=== PATIENT | female | born 1930 | race Caucasian/White ===

== ENCOUNTER 2020-04-01 10:56 | Emergency (ER) | payer OTHER ==
[~2020-04-01] VITALS: Ht 165.1 cm; Wt 66.6 kg
[2020-04-01] MEDS ORDERED: CHILDREN'S ASPI81 M1 PO (11:13)
[2020-04-01] MEDS ORDERED: METFORMIN HCL500 M3 PO (11:13)
[2020-04-01] MEDS ORDERED: LISINOPRIL2.5 MG PO (11:14)
[2020-04-01] MEDS ORDERED: LEVO-T50 MCG PO (11:14)
[2020-04-01] MEDS ORDERED: REGLAN 5 MG TAB5 MG PO (11:15)
[2020-04-01] MEDS ORDERED: EZETIMIBE10 MG PO (11:15)
[2020-04-01] MEDS ORDERED: LIPITOR10 MG PO (11:16)
[2020-04-01] MEDS ORDERED: DONEPEZIL HCL 55 M1 PO (11:16)
[2020-04-01 11:24] LABS: ABSOLUTE BASOPHILS 0.1 thou/uL (0.0-0.2); ABSOLUTE EOSINOPHILS 0.1 thou/uL (0.0-0.7); ABSOLUTE LYMPHOCYTES 1.3 thou/uL (0.8-5.3); ABSOLUTE MONOCYTES 0.5 thou/uL (0.0-1.2); ABSOLUTE NEUTROPHILS 2.8 thou/uL (1.6-8.1); BASOPHILS 1.1 %; EOSINOPHILS 1.7 %; HEMATOCRIT 34.2 % (37.0-47.0); HEMOGLOBIN 11.2 gm/dL (12.0-15.0); LYMPHOCYTES 28.2 %; MCH 25.9 pg (26.0-34.0); MCHC 32.6 g/dL (28.0-37.0); MCV 79.5 fL (80.0-100.0); MONOCYTES 10.8 %; MPV 7.8 fl. (7.2-11.1); NUCLEATED RBCS 0 /100WBC; PLATELET COUNT* 221 thou/uL (150-400); POLYS 58.2 %; RBC 4.31 mil/uL (4.20-5.00); RDW-CV 17.8 % (10.5-14.5); WBC 4.8 thou/uL (4.0-11.0)
[2020-04-01 11:42] LABS: CALCIUM 8.9 mg/dL (8.5-10.1); CREATININE 0.7 mg/dL (0.6-1.3)
[2020-04-01 11:46] LABS: POTASSIUM 5.9 mmol/L (3.5-5.1)
[2020-04-01 11:47] LABS: ALBUMIN 3.2 g/dL (3.4-5.0); TOTAL BILIRUBIN 0.6 mg/dL (<0.1-1.0); TOTAL PROTEIN 7.4 g/dL (6.4-8.2)
[2020-04-01 12:16] LABS: URINE BILIRUBIN NEGATIVE (Negative); URINE BLOOD NEGATIVE (Negative); URINE CLARITY CLEAR; URINE COLOR YELLOW; URINE GLUCOSE-RANDOM NEGATIVE (Negative); URINE KETONES NEGATIVE (Negative); URINE LEUKOCYTES-REFLEX NEGATIVE (Negative); URINE NITRITE-REFLEX NEGATIVE (Negative); URINE PROTEIN NEGATIVE (Negative); URINE UROBILINOGEN 0.2 E.U./dl (0.2-1.0)
[2020-04-01] MEDS ORDERED: PROTONIX40 MG PO (13:24)
[2020-04-01 13:51] VITALS: BP 129/54
--- NOTE | 2020-04-01 14:44 | EKG ---
[place] [address] ELECTROCARDIOGRAM REPORT Name: JOSE DAVIDISIDORO FELIX Theo Room: [facility] [place]#: [id number] Admission: 04/01/20 Attend Phys: Discharge: 04/01/20 Date of : [birth year] Date of Service: 04/01/20 1146 Report #: [id number] THIS REPORT FOR: //name// [facility] ED Test Date: 2020-04-01 Test Time: 11:46:49 Pat Name: ISIDORO PEACOCK Department: Room: Gender: F [employer]: JORDI : 1930 Requested By: Bennett Kapadia Order Number: [id number] MD: Wyatt White Measurements Intervals Weed Rate: 61 P: -20 WA: 271 QRS: 15 QRSD: 101 T: 39 QT: 434 QTc: 438 Interpretive Statements Sinus rhythm Prolonged WA interval No previous ECG available for comparison Electronically Signed On 04-01-2020 14:44:07 CDT by Wyatt White [email or web address] <ELECTRONICALLY SIGNED> By: Wyatt White MD, [facility] 04/01/20 1444 1146 1146 Wyatt White MD, FAC /EPI
== END 2020-04-01 13:52 | disposition home or self-care (01) ==
LOC: M.ERS 10:56
PROVIDERS: Family Medicine
DX: K29.70 Gastritis, unspecified, without bleeding (principal); Z20.828 Contact with and (suspected) exposure to other viral communicable diseases; E11.9 Type 2 diabetes mellitus without complications; I10 Essential (primary) hypertension; E78.5 Hyperlipidemia, unspecified; E03.9 Hypothyroidism, unspecified